=== PATIENT | female | born 1965 | race Caucasian/White ===

== ENCOUNTER 2016-07-04 00:39 | Inpatient (IN) | payer BC ==
--- NOTE | 2016-07-04 01:08 | DR.GENAD ---
HPI - PCP Primary Care Physician: ESPERANZA TAM - Complaint/Symptoms Chief Complaint:: UPPER ABD PAIN DENIES ANY NVD Self Treatment fo Chief Complaint: NONE - Nurses notes reviewed Nurses Notes Review: Yes - Source History Provided: Patient - Mode of Arrival Mode of Arrival: Wheelchair - Timing Onset of Chief Complaint: 07/04/16 Came on: Suddenly - Duration Duration: Constant How lon Duration: Hours - Location Location: epigastric - Severity Severity: Moderate - Modifying Factors Worsens:: nothing - Associated Signs and Symptoms Associated Signs and Symptoms: pain no N/V diarrhea PMH - PMH Past Medical History: Yes Past Medical History: Hypertension Past Medical History Comment: FM Past Surgical History: Yes Surgical History: Appendectomy, , Cholecystectomy - Family History History of Family Medical Conditions: Yes Family Medical History: Diabetes Mellitus Family Medical History Comment: FATHER - Social History Does patient currently use any type of tobacco product: No Have you used tobacco products in the last 12 months: No Type of Tobacco Use: None Does any household member use tobacco: No Alcohol Use: None Do you use any recreational Drugs:: No Lives With: Spouse Lives Where: Home - infectious screening In the last 2 months have you had wt loss of >10#?: NO Have you had fever, night sweats or hemotysis?: No Have you traveled outside the country in the last 6 months?: No Isolation: Standard ROS - Review of Systems Constitutional: No Symptoms Reported Eyes: No Symptoms Reported ENTM: Nose Congestion Respiratoy: Dry Cough Cardiovascular: No Symptoms Reported Gastrointestinal/Abdominal: Abdominal Pain Neurological: Anxiety Musculoskeletal: No Symptoms Reported Integumentary: No Symptoms Reported Hematologic/Lymphatic: No Symptoms Reported Endocrine: No Symptoms Reported Psychiatric: Depression PE - Vital Signs Vitals: Temperature 98.7 F Pulse Rate 77 Respiratory Rate 18 Blood Pressure [Right Arm] 135/73 Blood Pressure 147/79 O2 Sat by Pulse Oximetry 100 - General Limitations: No Limitations General Appearance: Alert - Head Head Exam: Normal Inspection - Eyes Eye exam: EOMI. negative: Scleral Icterus, Conjunctival Injection - ENT ENT Exam: Normal Exam, Normal Oropharynx External Ear Exam: Normal External Inspection Nose Exam: Normal Nose Exam Mouth Exam: Normal Inspection - Neck Neck Exam: Normal Inspection, Full ROM, Trachea Midline - Chest Chest Inspection: Normal Inspection - Respiratory Respiratory Exam: negative: Accessory Muscle Use, Respiratory Distress Respiratory Exam: Bilateral Clear to Auscultation - Abdominal Exam Abdominal Exam: Normal Inspection, Normal Bowel Sounds, Soft, Tenderness ( epigastric). negative: Distention, Guarding Abdominal Tenderness: Epigastrium - Extremities Extremities Exam: Normal Inspection, Full ROM - Neurologic Neurological Exam: Alert, Oriented X3, CN II-XII Intact - Psychiatric Psychiatric Exam: Anxious - Skin Skin Exam: Intact, Normal Color Course - Consultation Called: 02:10 Call Returned: 02:10 Consultation Comments: case discussed with Dr. Anguiano admit get CT abdo/pelvis ROR - Labs Reviewed Result Diagrams: 07/04/16 01:00 07/04/16 01:00 Laboratory: WBC 9.7 X10^3/uL (3.6-10.0) 07/04/16 01:00 RBC 4.83 X10^6/uL (3.5-5.4) 07/04/16 01:00 Hgb 14.2 g/dL (12.0-16.0) 07/04/16 01:00 Hct 43.0 % (36.0-47.0) 07/04/16 01:00 MCV 89.0 fL (80.0-100.0) 07/04/16 01:00 MCH 29.3 pg (27.0-34.0) 07/04/16 01:00 MCHC 33.0 g/dL (33.0-35.0) 07/04/16 01:00 RDW 14.0 % (11.6-16.5) 07/04/16 01:00 Plt Count 262 X10^3/uL (150.0-450.0) 07/04/16 01:00 MPV 10.1 fL (7.4-11.0) 07/04/16 01:00 Neut % 68.8 % (42.0-75.0) 07/04/16 01:00 Lymph % 19.2 % (21.0-51.0) L 07/04/16 01:00 [place] % 8.7 % (0.0-13.0) 07/04/16 01:00 Eos % 2.1 % (0.9-2.9) 07/04/16 01:00 Baso % 1.2 % (0.2-1.0) H 07/04/16 01:00 Neut # 6.7 x10^3/uL (2.2-4.8) H 07/04/16 01:00 Lymph # 1.9 X10^3/uL (1.3-2.9) 07/04/16 01:00 [place] # 0.8 x10^3/uL (0.3-0.8) 07/04/16 01:00 Eos # 0.2 x10^3/uL (0.0-0.2) 07/04/16 01:00 Baso # 0.1 X10^3/uL (0.0-0.1) 07/04/16 01:00 Absolute Nucleated RBC 0.1 /100WBC 07/04/16 01:00 Sodium 140 mmol/L (136-145) 07/04/16 01:00 Corrected Sodium TNP 07/04/16 01:00 Potassium 3.8 mmol/L (3.5-5.1) 07/04/16 01:00 Chloride 102 mmol/L (98-107) 07/04/16 01:00 Carbon Dioxide 27.9 mmol/L (21-32) 07/04/16 01:00 BUN 11 mg/dL (7-18) 07/04/16 01:00 Creatinine 0.86 mg/dL (0.55-1.02) 07/04/16 01:00 Est GFR (MDRD) Af Amer > 60 (>60) 07/04/16 01:00 Est GFR (MDRD) Non-Af > 60 (>60) 07/04/16 01:00 Glucose 104 mg/dL (65-99) H 07/04/16 01:00 Calcium 8.7 mg/dL (8.5-10.1) 07/04/16 01:00 Corrected Calcium TNP 07/04/16 01:00 Total Bilirubin 0.40 mg/dL (0.2-1.0) 07/04/16 01:00 AST 23 Units/L (15-37) 07/04/16 01:00 ALT 27 Units/L (12-78) 07/04/16 01:00 Alkaline Phosphatase 70 Units/L (46-116) 07/04/16 01:00 Total Protein 7.8 g/dL (6.4-8.2) 07/04/16 01:00 Albumin 3.8 g/dL (3.4-5.0) 07/04/16 01:00 Globulin 4.0 g/dL (2.5-4.5) 07/04/16 01:00 Albumin/Globulin Ratio 1.0 Ratio (1.1-2.1) L 07/04/16 01:00 Lipase 1188 Units/L (73-393) H 07/04/16 01:00 - XRAY XRAY Interpreted by: Radiologist XRAY Findings: AAS: no acute disease - Diagnosis Discharge Problem: Pancreatitis, acute Qualifiers: Pancreatitis type: unspecified pancreatitis type Acute pancreatitis complication: unspecified Qualified Code(s): K85.90 - Acute pancreatitis without necrosis or infection, unspecified - Discharge Plan Condition: Stable - Follow ups/Referrals Follow ups/Referrals: Cleve Ratliff [Primary Care Provider] - 3 days - Instructions
[2016-07-04] MEDS ORDERED: REGLAN INJ 10 MG VIAL IVP ONE (01:16)
[2016-07-04] MEDS ORDERED: PROTONIX INJ 40 MG VIAL IVP ONE (01:16)
[2016-07-04] MEDS ORDERED: LEVSIN/MAALOX/LIDOC VISC PO ONE (01:16)
[2016-07-04] MEDS ORDERED: LEVSIN/MAALOX/LIDOC VISC ONE (01:18)
[2016-07-04] MEDS ORDERED: REGLAN INJ 10 MG VIAL ONE (01:18)
[2016-07-04] MEDS ORDERED: PROTONIX INJ 40 MG VIAL ONE (01:19)
[2016-07-04 01:25] LABS: BASOPHILS # (AUTO) 0.1 X10^3/uL (0.0-0.1); BASOPHILS % (AUTO) 1.2 % (0.2-1.0); EOSINOPHILS # (AUTO) 0.2 x10^3/uL (0.0-0.2); EOSINOPHILS % (AUTO) 2.1 % (0.9-2.9); HEMOGLOBIN 14.2 g/dL (12.0-16.0); LYMPHOCYTES # (AUTO) 1.9 X10^3/uL (1.3-2.9); LYMPHOCYTES % (AUTO) 19.2 % (21.0-51.0); MEAN CORPUSCULAR HEMOGLOBIN 29.3 pg (27.0-34.0); MEAN PLATELET VOLUME 10.1 fL (7.4-11.0); MONOCYTES # (AUTO) 0.8 x10^3/uL (0.3-0.8); MONOCYTES % (AUTO) 8.7 % (0.0-13.0); NEUTROPHILS # (AUTO) 6.7 x10^3/uL (2.2-4.8); NEUTROPHILS % (AUTO) 68.8 % (42.0-75.0); PLATELET COUNT 262 X10^3/uL (150.0-450.0); RED BLOOD COUNT 4.83 X10^6/uL (3.5-5.4); WHITE BLOOD COUNT 9.7 X10^3/uL (3.6-10.0)
[2016-07-04 01:35] LABS: ALANINE AMINOTRANSFERASE 27 Units/L (12-78); ALBUMIN 3.8 g/dL (3.4-5.0); ALKALINE PHOSPHATASE 70 Units/L (46-116); ASPARTATE AMINO TRANSFERASE 23 Units/L (15-37); BLOOD UREA NITROGEN 11 mg/dL (7-18); CALCIUM 8.7 mg/dL (8.5-10.1); CARBON DIOXIDE 27.9 mmol/L (21-32); CHLORIDE 102 mmol/L (98-107); CREATININE 0.86 mg/dL (0.55-1.02); GLUCOSE 104 mg/dL (65-99); LIPASE 1188 Units/L (73-393); SODIUM 140 mmol/L (136-145); TOTAL PROTEIN 7.8 g/dL (6.4-8.2); eGFR BLACK RACES > 60 (>60); eGFR NON BLACK RACES > 60 (>60)
--- NOTE | 2016-07-04 02:00 | RAD ---
EXAM: Abdomen series and Chest x-ray INDICATION: Abdominal pain COMPARISION: No priors TECHNIQUE: Abdomen flat and upright, two views and PA view of the chest, single view FINDINGS: The lungs are clear. No pneumothorax or pleural effusion. The cardiac silhouette and mediastinum are normal. The bowel gas pattern is nonobstructed. No abnormal mass effect or calcification. The regio nal skeleton is intact. No free air is seen under the hemidiaphragms. IMPRESSION: Normal abdominal series and chest x-ray. Reported By:
[2016-07-04] MEDS ORDERED: DEMEROL INJ IVP PRN (02:15)
[2016-07-04 03:18] VITALS: BMI 29.9
[2016-07-04] MEDS: NS 1000 ML 1,000 ML IV SCH ×3 (04:28→19:55)
--- NOTE | 2016-07-04 07:14 | CT ---
HISTORY: Pancreatitis Study: CT abdomen pelvis with contrast Comparison: None Technique: Axial post-contrast images with coronal and sagittal reformats. Dose reduction procedures were used with MA/kv adjusted for body size. Findings: The lung bases are clear. The liver, spleen, adrenal glands, and pancreas are within normal limits. The patient is status post cholecystectomy. The kidneys are unobstructed and without stones or francia s. No ureteral calculi are identified. The appendix is surgically absent by history. There are no fi ndings suggestive of diverticulitis or colitis. No enlarged intraperitoneal or retroperitoneal lymph adenopathy is identified. Examination of the pelvis demonstrated no evidence for pelvic masses, pelv ic fluid, or pelvic lymphadenopathy. No bladder abnormality is identified. No significant skeletal a bnormality is identified. IMPRESSION: No significant abnormality identified Reported By:
[2016-07-04] MEDS ORDERED: PATIENT'S HOME MEDICATION RESPIRATORY (Losartan Potassium [Losartan Potassium] 25 MG) PO SCH (09:00)
[2016-07-04] MEDS: COZAAR PO SCH (09:17)
[2016-07-04] MEDS: HYDROCHLOROTHIAZIDE 25 MG TAB PO SCH (09:17)
[2016-07-04] MEDS: PROTONIX INJ 40 MG VIAL IVP SCH (09:17)
[2016-07-04 09:49] LABS: BILIRUBIN,URINE NEGATIVE (NEGATIVE); BLOOD/HEMOGLOBIN,URINE NEGATIVE (NEGATIVE); GLUCOSE, URINE NEGATIVE (NEGATIVE); KETONES,URINE NEGATIVE (NEGATIVE); LEUKOCYTE ESTERASE ,URINE NEGATIVE (NEGATIVE); NITRITES,URINE NEGATIVE (NEGATIVE); PROTEIN,URINE NEGATIVE (NEGATIVE); UROBILINOGEN,URINE NORMAL (NORMAL)
[2016-07-04 10:12] LABS: APPEARANCE,URINE CLEAR (CLEAR); COLOR,URINE YELLOW (YELLOW)
[2016-07-04 10:17] LABS: BACTERIA,URINE NEGATIVE /HPF (NEGATIVE); RBC,URINE NONE SEEN /HPF (NEGATIVE); SQUAMOUS EPITHELIAL CELL,UR RARE /HPF (NEGATIVE)
[2016-07-04] MEDS ORDERED: CYMBALTA PO SCH ×4 (11:00→21:00)
[2016-07-04] MEDS: NEURONTIN CAP 100 MG PO SCH ×2 (14:32→21:38)
[2016-07-04] MEDS ORDERED: ZANAFLEX PO SCH (21:00)
--- NOTE | 2016-07-04 22:33 | DR.H&P ---
H&P - History & Physical for Day of: H&P Date: 07/04/16 - Chief Complaint Chief Complaint: ABDOMINAL PAIN - Allergies Allergies/Adverse Reactions: Allergies Allergy/AdvReac Type Severity Reaction Status Date / Time No Known Drug Allergy Allergy Verified 01/24/12 21:47 - History of Present Illness History of Present Illness: THIS IS A 50 YEAR OLD FEMALE, WHO IS FOLLOWED BY RAFIA DE LEON IN [facility]. SHE PRESENTS TO THE EMERGENCY ROOM WITH COMPLAINTS OF UPPER ABDOMINAL PAIN. SHE REPORTS ABDOMINAL PAIN BEGAN SUDDENLY, APPROXIMATELY ONE HOUR PRIOR TO ARRIVAL. PATIENT DENIES N/V/D. ON AUSCULTATION, BOWEL SOUNDS NORMAL. UPON PALPATION, ABDOMEN IS SOFT WITH DIFFUSE TENDERNESS. PATIENT RATES ABDOMINAL PAIN A 10 ON A 1-TO-10 PAIN SCALE. SHE DENIES TRAUMA OR ALCOHOL USE. SHE IS STATUS POST CHOLECYSTECTOMY. PATIENT HAS RECENTLY HAD TREATMENT FOR INFLUENZA. PATIENT AFEBRILE. LABS AND CT OBTAINED. CBC WNL. CMP WNL EXCEPT: GLUCOSE 104, LIPASE 1188. URINALYSIS WNL. CT OF ABDOMEN/PELVIS REPORTS NO SIGNIFICANT ABNORMALITY. WE WILL ADMIT PATIENT AND TREAT HER FOR PANCREATITIS WITH IV FLUIDS. WE WILL START DEMEROL AND PROTONIX, CONTINUE TO MONITOR, AND FOLLOW UP IN AM WITH LABS. - Past Medical History Past Medical History: Depression, GERD, Hypertension Additional Medical History: Vision Deficit, Gall Bladder Disease, Urinary Tract Infections, Pancreatitis, Fibromyalgia, Back Pain - Past Surgical History Surgical History: Appendectomy, , Cholecystectomy, Hysterectomy - Family History Family Medical History: Diabetes Mellitus - Social History Does patient currently use any type of tobacco product: No Have you used tobacco products in the last 12 months: No Type of Tobacco Use: None Does any household member use tobacco: No Alcohol Use: None Drug Use: None - Medications Home Medications: Cefdinir 1 cap PO BID 07/04/16 [History Confirmed 07/04/16] Cholecalciferol [Vitamin D] 5,000 iu PO DAILY 07/04/16 [History Confirmed ] Cinnamon [Cinnamon Extract] 1,000 mg PO DAILY 07/04/16 [History Confirmed ] Duloxetine HCl [Duloxetine HCl] 1 cap PO DAILY 07/04/16 [History Confirmed 07/04] Duloxetine HCl [Duloxetine HCl] 1 cap PO DAILY 07/04/16 [History Confirmed 07/04] Gabapentin [Gabapentin] 1 cap PO TID 07/04/16 [History Confirmed 07/04/16] Glucosamine-Chondroitin [Glucosamine/Chondroitin T 750-600 mg] 1 tab PO DAILY [History Confirmed 07/04/16] Guaifenesin-Codeine [Cheratussin AC 100-10 mg/5Ml] 2 teaspoon PO Q4-6H PRN 07/04 [History Confirmed 07/04/16] Hydrochlorothiazide [Hydrochlorothiazide] 1 tab PO DAILY PRN 07/04/16 [History Confirmed 07/04/16] Hydroxychloroquine Sulfate [Hydroxychloroquine Sulfat] 1 tab PO BID 07/04/16 [ History Confirmed 07/04/16] Lisdexamfetamine Dimesylate [Vyvanse] 1 cap PO DAILY 07/04/16 [History Confirmed 07/04/16] Losartan Potassium 1 tab PO DAILY 07/04/16 [History Confirmed 07/04/16] Oseltamivir Phosphate [TAMIFLU 75 MG CAP (ADULT) *] 1 cap PO BID 07/04/16 [ History Confirmed 07/04/16] Pilocarpine HCl (Oral) [Pilocarpine Hydrochloride] 1 tab PO QID PRN 07/04/16 [ History Confirmed 07/04/16] Tizanidine HCl [Tizanidine HCl] 1 tab PO HS 07/04/16 [History Confirmed 07/04/16 ] - Review of Systems Constitutional: Weakness, Malaise Eyes: No Symptoms Reported. denies: Pain, Vision Change, Conjunctivae Inflammation, Eyelid Inflammation, Redness ENT: No Symptoms Reported. denies: Ear Pain, Ear Discharge, Nose Pain, Nose Discharge, Nose Congestion, Mouth Pain, Mouth Swelling, Throat Pain, Throat Swelling Respiratory: No Symptoms Reported. denies: Cough, Shortness of Breath, Hemoptysis, SOB with Excertion, Pleuritic Pain, Sputum, Wheezing Cardiovascular: No Symptoms Reported. denies: Chest Pain, Palpitations, Orthopnea, Paroxysmal Noc. Dyspnea, Edema, Light Headedness Gastrointestinal: Abdominal Pain. denies: Nausea, Vomiting, Diarrhea, Constipation, Melena Genitourinary: No Symptoms Reported. denies: Dysuria, Frequency, Incontinence, Hematuria Musculoskeletal: No Symptoms Reported. denies: Shoulder Pain, Arm Pain, Back Pain, Hand Pain, Leg Pain, Foot Pain Skin: Jaundice. denies: Lesions, Bruising, Ecchymosis Neurological: No Symptoms Reported. denies: Weakness, Numbness, Incoordination , Change in Speech - Physical Exam Vital Signs: Temperature 97.9 F Pulse Rate [Left Brachial] 68 Respiratory Rate 20 Blood Pressure [Left Arm] 106/63 O2 Sat by Pulse Oximetry 99 Oriented: Normal, Time, Person, Place Eyes: Normal. negative: Blurred Vision, Discharge, Pain, Redness, Photophobia Ear: Normal. negative: Swelling, Ecchymosis, Hemotypanum, Abrasion, Laceration Nose: Normal. negative: Injected, Discharge, Blood Throat: Normal. negative: Tonsillar Hypertrophy, Red Respiratory: Clear Throughout Cardiovascular: Normal. negative: Murmur, Edema : Normal. negative: Dysuria, Hematuria, Frequency, Discharge Auscultation: Bowel Sounds: Normal. negative: Bruit Palpation: Normal. negative: Spleen Enlarged, Liver Enlarged, Mass Pulsatile Tenderness: Diffuse, Severe. negative: Rebound, Guarding, Rigidity Skin: Normal Musculoskeletal: Normal Psychiatric: Normal Mood Description: Calm, Appropriate Affect: Normal Speech Pattern: Clear, Appropriate - Assessment/Plan (1) Pancreatitis, acute Qualifiers: Pancreatitis type: unspecified pancreatitis type Acute pancreatitis complication: unspecified Qualified Code(s): K85.90 - Acute pancreatitis without necrosis or infection, unspecified Status: Acute Plan: ADMIT PATIENT, START IV FLUIDS, MONITOR AMYLASE AND LIPASE, DEMEROL NEEDED, LABS IN AM. (2) Depression Qualifiers: Depression Type: major depressive disorder Major depression recurrence: recurrent Active/Remission status: currently active Major depression episode severity: moderate Psychotic features: P Trimester: T Qualified Code(s): F33.1 - Major depressive disorder, recurrent, moderate Status: Chronic (3) GERD (gastroesophageal reflux disease) Qualifiers: Esophagitis presence: esophagitis presence not specified Qualified Code(s) : K21.9 - Gastro-esophageal reflux disease without esophagitis Status: Chronic (4) HTN (hypertension) Qualifiers: Hypertension type: essential hypertension Qualified Code(s): I10 - Essential (primary) hypertension Status: Chronic
[2016-07-05] MEDS: NS 1000 ML 1,000 ML IV SCH (03:27)
[2016-07-05] MEDS: NEURONTIN CAP 100 MG PO SCH (05:15)
[2016-07-05 06:23] LABS: ALANINE AMINOTRANSFERASE 33 Units/L (12-78); ALBUMIN 2.9 g/dL (3.4-5.0); ALKALINE PHOSPHATASE 57 Units/L (46-116); AMYLASE 65 Units/L (25-115); ASPARTATE AMINO TRANSFERASE 19 Units/L (15-37); BLOOD UREA NITROGEN 6 mg/dL (7-18); CHLORIDE 108 mmol/L (98-107); CHOL/HDL RATIO 3.3 (0.0-5.0); CHOLESTEROL 149 mg/dL (0-200); COR CA(FOR HYPOALB) 8.9 mg/dL (8.5-10.1); GLUCOSE 87 mg/dL (65-99); HDL CHOLESTEROL 45 mg/dL (40-60); LIPASE 176 Units/L (73-393); SODIUM 143 mmol/L (136-145); TOTAL PROTEIN 6.1 g/dL (6.4-8.2); TRIGLYCERIDES 67 mg/dL (0-150); eGFR BLACK RACES > 60 (>60); eGFR NON BLACK RACES > 60 (>60)
[2016-07-05 06:31] LABS: BASOPHILS # (AUTO) 0.1 X10^3/uL (0.0-0.1); EOSINOPHILS # (AUTO) 0.2 x10^3/uL (0.0-0.2); EOSINOPHILS % (AUTO) 3.2 % (0.9-2.9); HEMATOCRIT 36.1 % (36.0-47.0); HEMOGLOBIN 11.7 g/dL (12.0-16.0); LYMPHOCYTES # (AUTO) 2.1 X10^3/uL (1.3-2.9); LYMPHOCYTES % (AUTO) 32.2 % (21.0-51.0); MEAN CORPUSCULAR HEMOGLOBIN 29.3 pg (27.0-34.0); MEAN CORPUSCULAR HGB CONC 32.5 g/dL (33.0-35.0); MEAN CORPUSCULAR VOLUME 90.1 fL (80.0-100.0); MEAN PLATELET VOLUME 10.4 fL (7.4-11.0); MONOCYTES # (AUTO) 0.6 x10^3/uL (0.3-0.8); MONOCYTES % (AUTO) 8.6 % (0.0-13.0); NEUTROPHILS # (AUTO) 3.6 x10^3/uL (2.2-4.8); PLATELET COUNT 221 X10^3/uL (150.0-450.0); RED BLOOD COUNT 4.01 X10^6/uL (3.5-5.4); WHITE BLOOD COUNT 6.5 X10^3/uL (3.6-10.0)
[2016-07-05] MEDS: COZAAR PO SCH (08:42)
[2016-07-05] MEDS: HYDROCHLOROTHIAZIDE 25 MG TAB PO SCH (08:42)
[2016-07-05] MEDS: PROTONIX INJ 40 MG VIAL IVP SCH (08:42)
[2016-07-05 09:47] VITALS: BP 104/66
== END 2016-07-05 10:30 | disposition home or self-care (01) | DRG 439 ==
LOC: ER 00:39 → MED/SURG 02:17
PROVIDERS: ADMIT Internal Medicine; ATTEND Internal Medicine
DX: K85.90 Acute pancreatitis without necrosis or infection, unspecified (principal); R10.84 Generalized abdominal pain; K21.9 Gastro-esophageal reflux disease without esophagitis; I10 Essential (primary) hypertension; F33.1 Major depressive disorder, recurrent, moderate; R74.8 Abnormal levels of other serum enzymes
CPT/HCPCS: 36415; 74022; 74177; 80053; 80061; 81001; 82150; 83690; 85025; 96365; 96374; 96375; 99284; A4222; C9113; J2175; J2765

== ENCOUNTER 2018-10-04 21:10 | Inpatient (IN) ==
[2018-10-04 21:58] LABS: BASOPHILS % (AUTO) 0.4 % (0.2-1.0); EOSINOPHILS # (AUTO) 0.3 x10^3/uL (0.0-0.2); EOSINOPHILS % (AUTO) 1.9 % (0.9-2.9); HEMATOCRIT 40.4 % (36.0-47.0); HEMOGLOBIN 13.8 g/dL (12.0-16.0); LYMPHOCYTES # (AUTO) 1.2 X10^3/uL (1.3-2.9); LYMPHOCYTES % (AUTO) 8.9 % (21.0-51.0); MEAN CORPUSCULAR HGB CONC 34.3 g/dL (33.0-35.0); MEAN CORPUSCULAR VOLUME 87.7 fL (80.0-100.0); MEAN PLATELET VOLUME 9.3 fL (7.4-11.0); MONOCYTES # (AUTO) 0.8 x10^3/uL (0.3-0.8); MONOCYTES % (AUTO) 5.8 % (0.0-13.0); NEUTROPHILS # (AUTO) 11.6 x10^3/uL (2.2-4.8); PLATELET COUNT 212 X10^3/uL (150.0-450.0); RED BLOOD COUNT 4.61 X10^6/uL (3.5-5.4); RED CELL DISTRIBUTION WIDTH 13.8 % (11.6-16.5); WHITE BLOOD COUNT 13.9 X10^3/uL (3.6-10.0)
[2018-10-04 22:15] LABS: BLOOD UREA NITROGEN 10 mg/dL (7-18); CALCIUM 10.1 mg/dL (8.5-10.1); CARBON DIOXIDE 32.1 mmol/L (21-32); CHLORIDE 97 mmol/L (98-107); COR NA(FOR HYPERGLY) 136 mmol/L (136-145); SODIUM 136 mmol/L (136-145); TROPONIN I 0.29 ng/mL (0-1.5); eGFR NON BLACK RACES 55 (>60)
--- NOTE | 2018-10-04 22:18 | DR.SOBA ---
HPI Time Seen Time Seen by Provider: 10/04/18 22:17 Primary Care Physician Primary Care Physician: ESPERANZA HPI Comment HPI Comment: PATIENT IS 52YR OLD WHITE FEMALE WHO STARTED HAVING HEADACHE, EAR PAIN,NECK PAIN AND LOWER BACK PAIN. SHE WAS ON A TRIP AND CONTINUE TO FEEL BAD. CHEST PAIN, SUB STRENAL PRESSURE STARTED TODAY THAT IS GETTING WORSE. NO FEVER OR CONGESTION. HISTORY FIBROMYALGIA. RECENTLY CHANGE HER MEDICATION. Complaints Chief Complaint Doctors Comments: CHEST PAIN. Chief Complaint:: PT STATES" IT STARTED ABOUT 4 DAYS AGO WHEN I WENT ON A TRIP. I HAD A REALLY BAD HEADACHE AND MY EARS STARTED HURTING AND MY NECK HURTS IT GOES ACROSS MY BACK. I FELT SOB STARTING YESTERDAY IT WAS WORSE AFTER I GOT OFF THE PLANE CHEST STARTED HURTING I FEEL LIKE I HAVE A BRICK ON MY CHEST" Reviewed Nurses Notes Reviewed: Yes Source History Provided: Patient and Family Member Mode of Arrival Mode of Arrival: Ambulatory Timing Onset of Chief Complaint: 10/01/18 Duration Duration: Days Context Onset:: With Light Exertion PE Risk Factors:: None History of:: None Currently on:: Neither Prehospital Care:: None Modifying Factors Worsens:: Exertion Improves:: Rest Associated Signs and Symptoms Associated Signs and Symptoms: Chest Pain PMH PMH Past Medical History: Yes Past Medical History: Depression, GERD and Hypertension Past Medical History Comment: FIBROMYALGIA Past Surgical History: Yes Surgical History: Appendectomy, , Cholecystectomy and Hysterectomy Family History History of Family Medical Conditions: Yes Family Medical History: Diabetes Mellitus and Hypertension Social History Does patient currently use any type of tobacco product: No Have you used tobacco products in the last 12 months: No Does any household member use tobacco: No Alcohol Use: None Do you use any recreational Drugs:: No Lives With: Family Lives Where: Home infectious screening In the last 2 months have you had wt loss of >10#?: NO Have you had fever, night sweats or hemotysis?: No Have you traveled outside the country in the last 6 months?: No Isolation: Standard ROS Review of Systems Constitutional: See HPI, Malaise, Weakness and Fatigue; negative Fever Eyes: See HPI and Photophobia; negative Eye Pain, Blurred Vision and Discharge ENTM: See HPI and Ear Pain; negative Nose Discharge, Nose Congestion and Throat Pain Respiratoy: See HPI, Moist Cough and Short of Breath; negative Wheezing Cardiovascular: See HPI and Chest Pain; negative Edema and Palpitations Gastrointestinal/Abdominal: See HPI and Nausea; negative Abdominal Pain, Constipation, Diarrhea and Vomiting Genitourinary: No Symptoms Reported and See HPI; negative Dysuria, Frequency and Hematuria Neurological: See HPI, Headache and Weakness; negative Dizziness Musculoskeletal: See HPI, Back Pain and Muscle Pain Integumentary: See HPI and Dryness; negative Change in Color, Bruises and Juandice Hematologic/Lymphatic: See HPI, Easy Bruising and Swollen Glands; negative Lymphadenopathy Endocrine: See HPI and Unexplained Weight Gain; negative Flushing Psychiatric: No Symptoms Reported and See HPI All Other Systems: Reviewed and Negative PE Vital Signs Vitals: Temperature 98.2 F Pulse Rate [Left Brachial] 86 Pulse Rate 72 Respiratory Rate 20 Blood Pressure [Left Arm] 98/62 Blood Pressure [Right Arm] 135/73 Blood Pressure 103/60 O2 Sat by Pulse Oximetry 97 General Limitations: No Limitations General Appearance: Alert and In No Apparent Distress Head Head Exam: Normal Inspection, Atraumatic and Normocephalic Eyes Eye exam: Normal Appearance, PERRL and EOMI; negative Scleral Icterus and Conjunctival Injection ENT ENT Exam: Normal Exam and Normal Oropharynx; negative Normal External Ear Exam and TM's Normal Bilaterally Neck Neck Exam: Normal Inspection, Trachea Midline and Lymphadenopathy; negative Tenderness Chest Chest Inspection: Symmetric Chest Wall Rise; negative Tenderness Respiratory Respiratory Exam: Normal Lung Sounds Bilat; negative Accessory Muscle Use, Chest Wall Tenderness and Respiratory Distress Respiratory Exam: Bilateral: Rhonchi and Lower: Rhonchi Cardiovascular Cardiovascular Exam: Regular Rate, Normal Rhythm and Normal Heart Sounds; negative Systolic Murmur and Diastolic Murmur Abdominal Exam Abdominal Exam: Normal Bowel Sounds and Soft; negative Tenderness, Organomegaly and Mass Extremities Extremities Exam: Normal Inspection and Normal Capillary Refill; negative Tenderness, Edema and Calf Tenderness Back Back Exam: Normal Inspection and Full ROM Neurologic Neurological Exam: Alert, Oriented X3 and CN II-XII Intact; negative Motor Sensory Deficit Psychiatric Psychiatric Exam: Normal Affect and Anxious Skin Skin Exam: Dry MDM Additional Information Obtained Additional Information Obtained From: Family Differential Diagnosis Differential Diagnosis: Bronchitis, CHF, Dysrhythmia, Hyponatremia, Mycardial Infarction, Pneumonia, Pneumothorax, Pulmonary embolism, Respiratory Insufficiency, Sinusitis and URI COURSE Treatment Treatment: SEE ORDERS. 01:18 : MORPHIN 4MG IV AND ZOFRAN 4MG IV. 01:20 : POTASSIUM 50MEQ EFFERVESCENT PO. ROR Labs Reviewed Laboratory Results Reviewed?: Yes Result Diagrams: 10/06/18 05:08 10/06/18 05:08 Laboratory: 10/04/18 21:45 Blood Blood Culture - Preliminary 10/04/18 22:34 Blood Blood Culture - Preliminary 10/05/18 05:02 Sputum - Expectorated Sputum Sputum Culture - Preliminary 10/05/18 05:02 Sputum - Expectorated Sputum - Final WBC 10.8 X10^3/uL (3.6-10.0) H 10/06/18 05:08 RBC 4.08 X10^6/uL (3.5-5.4) 10/06/18 05:08 Hgb 12.5 g/dL (12.0-16.0) 10/06/18 05:08 Hct 36.8 % (36.0-47.0) 10/06/18 05:08 MCV 90.4 fL (80.0-100.0) 10/06/18 05:08 MCH 30.6 pg (27.0-34.0) 10/06/18 05:08 MCHC 33.9 g/dL (33.0-35.0) 10/06/18 05:08 RDW 14.0 % (11.6-16.5) 10/06/18 05:08 Plt Count 186 X10^3/uL (150.0-450.0) 10/06/18 05:08 MPV 10.3 fL (7.4-11.0) 10/06/18 05:08 Neut % (Auto) 89.5 % (42.0-75.0) H 10/06/18 05:08 Lymph % (Auto) 7.5 % (21.0-51.0) L 10/06/18 05:08 [place] % (Auto) 2.7 % (0.0-13.0) 10/06/18 05:08 Eos % (Auto) 0.0 % (0.9-2.9) L 10/06/18 05:08 Baso % (Auto) 0.3 % (0.2-1.0) 10/06/18 05:08 Neut # (Auto) 9.7 x10^3/uL (2.2-4.8) H 10/06/18 05:08 Lymph # (Auto) 0.8 X10^3/uL (1.3-2.9) L 10/06/18 05:08 [place] # (Auto) 0.3 x10^3/uL (0.3-0.8) 10/06/18 05:08 Eos # (Auto) 0.0 x10^3/uL (0.0-0.2) 10/06/18 05:08 Baso # (Auto) 0.0 X10^3/uL (0.0-0.1) 10/06/18 05:08 Absolute Nucleated RBC 0.0 /100WBC 10/06/18 05:08 INR Target Range - 10/04/18 21:45 INR 1.07 (0.8-1.3) 10/04/18 21:45 APTT 29.5 SECONDS (22.9-36.5) 10/04/18 21:45 PTT Comment - 10/04/18 21:45 D-Dimer 498 ng/mL (0-400) H* 10/04/18 21:45 Sodium 139 mmol/L (136-145) 10/06/18 05:08 Corrected Sodium 140 mmol/L (136-145) 10/06/18 05:08 Potassium 3.7 mmol/L (3.5-5.1) 10/06/18 05:08 Chloride 104 mmol/L (98-107) 10/06/18 05:08 Carbon Dioxide 26.2 mmol/L (21-32) 10/06/18 05:08 BUN 11 mg/dL (7-18) 10/06/18 05:08 Creatinine 0.94 mg/dL (0.55-1.02) 10/06/18 05:08 Est GFR (MDRD) Af Amer > 60 (>60) 10/06/18 05:08 Est GFR (MDRD) Non-Af > 60 (>60) 10/06/18 05:08 Glucose 147 mg/dL (65-99) H 10/06/18 05:08 Calcium 9.1 mg/dL (8.5-10.1) 10/06/18 05:08 Corrected Calcium 9.9 mg/dL (8.5-10.1) 10/06/18 05:08 Magnesium 2.5 mg/dL (1.7-2.9) 10/06/18 05:08 Total Bilirubin 0.20 mg/dL (0.2-1.0) 10/06/18 05:08 AST 96 Units/L (15-37) H 10/06/18 05:08 ALT 154 Units/L (12-78) H 10/06/18 05:08 Alkaline Phosphatase 106 Units/L (46-116) 10/06/18 05:08 Creatine Kinase 110 Units/L (26-192) 10/06/18 05:08 CK-MB (CK-2) 2.7 ng/mL (0-4.0) 10/06/18 05:08 CK/CKMB % Calc 2.5 % (<4) 10/06/18 05:08 Troponin I 0.02 ng/mL (0-1.5) 10/06/18 05:08 B-Natriuretic Peptide 451 pg/mL (0-79) H 10/04/18 21:45 Total Protein 7.2 g/dL (6.4-8.2) 10/06/18 05:08 Albumin 3.0 g/dL (3.4-5.0) L 10/06/18 05:08 Globulin 4.2 g/dL (2.5-4.5) 10/06/18 05:08 Albumin/Globulin Ratio 0.7 Ratio (1.1-2.1) L 10/06/18 05:08 Influenza Type A (PCR) Negative (NEGATIVE) 10/05/18 09:37 Influenza Type B (PCR) Negative (NEGATIVE) 10/05/18 09:37 XRAY XRAY Interpreted by: Radiologist XRAY Findings: REPORT NOTED AND DISCUSS WITH PATIENT. Opioid Opioid Risk Tool Age ([place] box if 16-45): No Total: 0 Total Score Risk Category: Low Risk Copyright: [facility] predicting aberrant behaviors Instructions Instructions: How to Use a Nebulizer, Adult Upper Respiratory Infection, Adult, [id number] Hypertension, [id number] Community-Acquired Pneumonia, Adult Forms: Excuse From Work or School Patient Portal
[2018-10-04 22:19] LABS: ALANINE AMINOTRANSFERASE 37 Units/L (12-78); ALBUMIN 3.8 g/dL (3.4-5.0); ALKALINE PHOSPHATASE 93 Units/L (46-116); ASPARTATE AMINO TRANSFERASE 24 Units/L (15-37); CKMB % 1.4 % (<4); CREATINE KINASE 281 Units/L (26-192); CREATINE KINASE MB 3.9 ng/mL (0-4.0); MAGNESIUM 2.4 mg/dL (1.7-2.9); TOTAL PROTEIN 7.9 g/dL (6.4-8.2)
[2018-10-04] MEDS ORDERED: ZOFRAN INJ 4 MG VIAL ONE (23:10)
[2018-10-04] MEDS ORDERED: MORPHINE SULFATE INJ 4 MG ONE (23:11)
[2018-10-04] MEDS ORDERED: MORPHINE SULFATE INJ 4 MG IVP ONE (23:12)
[2018-10-04] MEDS ORDERED: ZOFRAN INJ 4 MG VIAL IVP ONE (23:12)
--- NOTE | 2018-10-04 23:39 | RAD ---
CHEST RADIOGRAPHS PA AND LATERAL VIEWS CLINICAL HISTORY: 52-year-old female with shortness of breath. COMPARISON: Chest radiographs 07/19/2013. FINDINGS: The cardiopericardial silhouette is stable with chronic prominence interstitium and perihilar lung markings. There is no focal consolidation, pleural effusion or pneumothorax. The lungs are well inflated. Pulmonary vascularity is normal. Imaged osseous structures are intact. Soft tissues are unremarkable. IMPRESSION: No acute cardiopulmonary process with findings suggesting COPD. Reported By:
[2018-10-05] MEDS ORDERED: NS 100 ML IV 100 ML ONE (01:17)
[2018-10-05] MEDS ORDERED: K-LYTE EFFERVESCENT PO ONE (01:20)
[2018-10-05 01:48] LABS: CKMB % 1.2 % (<4); CREATINE KINASE MB 2.5 ng/mL (0-4.0); TROPONIN I 0.26 ng/mL (0-1.5)
--- NOTE | 2018-10-05 02:08 | CT ---
CTA chest with contrast per pulmonary embolism protocol Indication: Chest pain Comparison: None available Technique: Multiple axial images of the chest were obtained from the thoracic inlet to the upper abdomen after the administration of IV contrast.Coronal and Sagittal MIP images were also provided. Dose reduction techniques including automated exposure control (AEC) and adjustment of mA and kV were utilized. Findings: No central or segmental pulmonary arterial filling defect is identified. There is normal caliber of the pulmonary artery without CT evidence or right heart strain. The heart size is within normal limits without pericardial effusion. No mediastinal, hilar or axillary adenopathy. Moderate peribronchial consolidation noted within the left and right lower lobes. Small nodular opacity within the subpleural right lower lobe measures approximately 6 mm on axial image 56. Mild diffuse peribronchial thickening is noted bilaterally. No pleural effusion or pneumothorax. Central airways are clear per Visualized upper abdomen and osseous structures are without acute abnormality. IMPRESSION: 1. No PTE identified. 2. Bilateral lower lobe peribronchial consolidation consistent acute bronchitis/bronchopneumonia. 3. Approximate 6 mm subpleural right lower lobe pulmonary nodule potentially is post infectious/inflammatory; however follow-up chest CT in 6 months is recommended to ensure resolution/stability. Reported By:
[2018-10-05] MEDS ORDERED: NS 1/2 1000 ML IV 1,000 ML ONE ×2 (03:29→17:16)
[2018-10-05] MEDS ORDERED: ZOFRAN INJ 4 MG VIAL IVP PRN (03:29)
[2018-10-05] MEDS ORDERED: MORPHINE SULFATE INJ 4 MG IVP PRN (03:29)
[2018-10-05] MEDS ORDERED: NS 100 ML IV + SPIKE MINIBAG* 100 ML ONE (03:30)
[2018-10-05] MEDS: NS 1/2 1000 ML IV 1,000 ML IV SCH ×2 (03:41→17:20)
[2018-10-05] MEDS ORDERED: NS 1/2 1000 ML IV 1,000 ML IV SCH (04:00)
[2018-10-05] MEDS ORDERED: FORTAZ or TAZICEF VIAL INJ IVP SCH (04:00)
[2018-10-05] MEDS ORDERED: SALINE 3% 15 ML NEB TX NEB ONE (04:04)
[2018-10-05] MEDS ORDERED: SALINE 3% 15 ML NEB TX ONE (04:11)
[2018-10-05] MEDS ORDERED: TYLENOL 325 MG TAB PO PRN (04:37)
[2018-10-05] MEDS ORDERED: TYLENOL 325 MG TAB PO ONE (04:46)
[2018-10-05 05:23] VITALS: BMI 29.3
[2018-10-05] MEDS ORDERED: DUONEB 0.5 MG/3 MG NEB SCH (06:00)
--- NOTE | 2018-10-05 06:23 | RAD ---
HISTORY: Pneumonia Study: Chest PA and lateral Comparison: CT chest same date, chest x-ray 10/04/2018 Findings: The heart is mildly enlarged. No congestive heart failure is noted. No definite acute alveolar infiltrates are identified. No definite pleural effusions are identified. The peribronchial infiltrates visualized on the recent chest CT are not well demonstrated on plain film. The bony thorax is unremarkable. IMPRESSION: Lungs free of acute alveolar infiltrates Reported By:
[2018-10-05 06:27] LABS: BASOPHILS # (AUTO) 0.1 X10^3/uL (0.0-0.1); BASOPHILS % (AUTO) 0.6 % (0.2-1.0); EOSINOPHILS # (AUTO) 0.5 x10^3/uL (0.0-0.2); EOSINOPHILS % (AUTO) 5.4 % (0.9-2.9); HEMATOCRIT 36.2 % (36.0-47.0); HEMOGLOBIN 12.5 g/dL (12.0-16.0); LYMPHOCYTES # (AUTO) 1.3 X10^3/uL (1.3-2.9); LYMPHOCYTES % (AUTO) 13.8 % (21.0-51.0); MEAN CORPUSCULAR HEMOGLOBIN 30.3 pg (27.0-34.0); MEAN CORPUSCULAR HGB CONC 34.6 g/dL (33.0-35.0); MEAN CORPUSCULAR VOLUME 87.5 fL (80.0-100.0); MEAN PLATELET VOLUME 9.6 fL (7.4-11.0); MONOCYTES # (AUTO) 0.6 x10^3/uL (0.3-0.8); MONOCYTES % (AUTO) 6.8 % (0.0-13.0); NEUTROPHILS # (AUTO) 6.7 x10^3/uL (2.2-4.8); NEUTROPHILS % (AUTO) 73.4 % (42.0-75.0); PLATELET COUNT 199 X10^3/uL (150.0-450.0); RED BLOOD COUNT 4.13 X10^6/uL (3.5-5.4); RED CELL DISTRIBUTION WIDTH 13.9 % (11.6-16.5); WHITE BLOOD COUNT 9.1 X10^3/uL (3.6-10.0)
[2018-10-05 06:34] LABS: ALANINE AMINOTRANSFERASE 82 Units/L (12-78); ALKALINE PHOSPHATASE 85 Units/L (46-116); ASPARTATE AMINO TRANSFERASE 92 Units/L (15-37); BLOOD UREA NITROGEN 7 mg/dL (7-18); CALCIUM 8.9 mg/dL (8.5-10.1); CARBON DIOXIDE 25.4 mmol/L (21-32); CHLORIDE 100 mmol/L (98-107); COR CA(FOR HYPOALB) 9.7 mg/dL (8.5-10.1); COR NA(FOR HYPERGLY) 135 mmol/L (136-145); SODIUM 135 mmol/L (136-145); TOTAL PROTEIN 6.6 g/dL (6.4-8.2); eGFR NON BLACK RACES > 60 (>60)
[2018-10-05] MEDS: DUONEB 0.5 MG/3 MG NEB SCH ×4 (08:56→20:24)
[2018-10-05] MEDS ORDERED: CYMBALTA PO SCH ×4 (09:00→21:00)
[2018-10-05] MEDS ORDERED: MINOCYCLINE 100 MG PO SCH (09:00)
[2018-10-05] MEDS: ROBITUSSIN DM PO SCH ×4 (09:56→20:59)
[2018-10-05] MEDS: ZANAFLEX PO SCH ×3 (09:57→20:58)
[2018-10-05] MEDS: NEURONTIN CAP 100 MG PO SCH (09:57)
[2018-10-05] MEDS: HYDROCHLOROTHIAZIDE 25 MG TAB PO SCH (09:59)
[2018-10-05] MEDS: COZAAR PO SCH (10:00)
[2018-10-05] MEDS: LEVAQUIN TAB 750 MG PO SCH (10:00)
[2018-10-05] MEDS: LISDEXAMFETAMINE 70 MG PO SCH (10:06)
[2018-10-05] MEDS: PILOCARPINE HCL 5 MG PO SCH ×4 (10:07→21:00)
[2018-10-05] MEDS: MINOCIN PO SCH ×2 (10:07→21:00)
[2018-10-05] MEDS: SOLU-Medrol 40 MG VIAL IVP SCH ×3 (12:36→22:00)
[2018-10-05] MEDS: FORTAZ or TAZICEF VIAL INJ IVP SCH ×2 (12:36→23:00)
[2018-10-05] MEDS ORDERED: FIORICET TAB PO PRN (12:39)
[2018-10-05] MEDS ORDERED: NEURONTIN CAP 100 MG PO SCH ×2 (17:00→21:00)
--- NOTE | 2018-10-05 20:57 | DR.H&P ---
H&P - History & Physical for Day of: H&P Date: 10/05/18 - Chief Complaint Chief Complaint: SOB, CHEST PRESSURE, NECK PAIN, DIZZINESS, HEADACHE - History of Present Illness History of Present Illness: IS A 52 YEAR OLD PATIENT OF OURS WHO PRESENTED TO THE ER WITH COMPLAINTS OF SHORTNESS OF BREATH, CHEST PRESSURE, NECK PAIN, DIZZINESS, AND HEADACHE. SHE REPORTS THAT SYMPTOMS STARTED FOUR DAYS AGO AND HAS BEEN PERSISTENT. HER MEDICAL HISTORY INCLUDES: DEPRESSION, GERD, HTN, FIBROMYALGIA. ON ARRIVAL, HER VITALS WERE: 98.4-90-20-99%-103/60. LABS WERE OBTAINED. ABNORMAL LAB VALUES INCLUDE THE FOLLOWING: WBC 13.9, D-DIMER 498, POT ASSIUM 3.1, CHLORIDE 97, CARBON DIOXIDE 32.1, CREATININE 1.10, GLUCOSE 120, CREATININE KINASE 281, BNP 451, INFLUENZA NEGATIVE. SPUTUM AND BLOOD CULTURES NEGATIVE. AN EKG WAS OBTAINED AND REVEALED: SINUS RHYTHM WITH HR 88. A CHEST XRAY WAS OBTAINED AND REVEALED: No acute cardiopulmonary process with findings suggesting COPD. A CHEST CTA WAS OBTAINED AND REVEALED: No PTE identified. Bilateral lower lobe peribronchial consolidation consistent acute bronchitis/bronchopneumonia. Approximate 6 mm subpleural right lower lobe pulmonary nodule potentially is post infectious/inflammatory; however follow-up chest CT in 6 months is recommended to ensure resolution/stability. SHE WAS GIVEN MORPHINE 4MG IV X 1 FOR HEADACHE. SHE WAS ALSO GIVEN A DUONEB AND STARTED ON FORTAZ 1G IV AND LEVAQUIN 750MG PO DAILY FOR TREATMENT OF BRONCHOPNEUMONIA. WE ADMITTED PATIENT FOR FURTHER EVALUATION AND TREATMENT. WE PLAN TO FOLLOW UP WITH AM LABS AND CHEST XRAY AND CONTINUE TO MONITOR. - Past Medical History Past Medical History: Hypertension, Depression, GERD Additional Medical History: Vision Deficit, Gall Bladder Disease, Urinary Tract Infections, Pancreatitis, Fibromyalgia, Back Pain - Past Surgical History Surgical History: Appendectomy, Cholecystectomy, , Hysterectomy - Family History Family Medical History: Diabetes Mellitus, Hypertension - Social History Does patient currently use any type of tobacco product: No Have you used tobacco products in the last 12 months: No Does any household member use tobacco: No Alcohol Use: None Drug Use: None Prescription drug monitoring program results: PDMP reviewed and no concerns identified - Medications Home Medications: No Known Drug Allergies Allergy (Verified 10/04/18 21:23) CONTINUE taking the following medications duloxetine 30 mg PO HS 06/24/19 [History] duloxetine 60 mg PO HS 10/04/18 [History] gabapentin 100 mg PO DAILY 10/04/18 [History] gabapentin 100 mg PO QAM 10/04/18 [History] gabapentin 300 mg PO HS 10/04/18 [History] hydrochlorothiazide 25 mg PO DAILY 10/04/18 [History] lisdexamfetamine [Vyvanse] 70 mg PO DAILY 10/04/18 [History] losartan 25 mg PO DAILY 10/04/18 [History] minocycline 100 mg PO BID 10/04/18 [History] pilocarpine HCl 5 mg PO QID 10/04/18 [History] tizanidine 2 mg PO BID 10/04/18 [History] - Review of Systems Constitutional: Weakness Eyes: No Symptoms Reported ENT: No Symptoms Reported Respiratory: Shortness of Breath Cardiovascular: Chest Pain, Light Headedness Gastrointestinal: No Symptoms Reported Genitourinary: No Symptoms Reported Musculoskeletal: See HPI, Neck Pain Skin: No Symptoms Reported Neurological: Weakness - Physical Exam Vital Signs: Temperature 98.8 F Pulse Rate [Left Brachial] 83 Pulse Rate 76 Respiratory Rate 18 Blood Pressure [Left Arm] 96/54 Blood Pressure [Right Arm] 135/73 Blood Pressure 103/60 O2 Sat by Pulse Oximetry 96 Oriented: Normal Eyes: Normal Ear: Normal Nose: Normal Throat: Normal Respiratory: Diminished Throughout Cardiovascular: Normal. negative: S3, S4, Murmur, Edema : Normal Auscultation: Bowel Sounds: Normal Palpation: Normal Tenderness: Normal Skin: Normal Musculoskeletal: Normal Psychiatric: Normal Mood Description: Calm Affect: Normal Speech Pattern: Clear - Assessment/Plan (1) Bronchopneumonia Status: Acute Plan: IV FORTAZ, LEVAQUIN, RESPIRATORY TREATMENTS, SUPPLEMENTAL OXYGEN, CONTINUE TO MONITOR (2) Headache Qualifiers: Headache type: unspecified Headache chronicity pattern: acute headache Status: Acute Plan: FIORCET, CONTINUE TO MONITOR - Allergies Allergies/Adverse Reactions: Allergies Allergy/AdvReac Type Severity Reaction Status Date / Time No Known Drug Allergies Allergy Verified 10/04/18 21:23
[2018-10-05] MEDS ORDERED: K-RIDER 10 MEQ/NS 100 ML 10 MEQ/100 ML BAG IV PRN (23:48)
[2018-10-05] MEDS ORDERED: POTASSIUM CHLORIDE LIQ 20 MEQ UDC PO PRN (23:48)
[2018-10-05] MEDS ORDERED: K-DUR TAB 20 MEQ PO PRN (23:48)
[2018-10-05] MEDS ORDERED: MICRO K EXTEN CAP 10 MEQ PO PRN (23:48)
[2018-10-05] MEDS ORDERED: POTASSIUM CHL 60 MEQ/NS 0.45% 500 ML IV PRN (23:48)
[2018-10-05] MEDS ORDERED: POTASSIUM CHL 40 MEQ/NS 0.45% 500 ML IV PRN (23:48)
[2018-10-05] MEDS ORDERED: KLOR-CON PO PRN (23:48)
[2018-10-06] MEDS ORDERED: NS 1/2 1000 ML IV 1,000 ML ONE (05:32)
[2018-10-06 05:36] LABS: BASOPHILS % (AUTO) 0.3 % (0.2-1.0); HEMATOCRIT 36.8 % (36.0-47.0); HEMOGLOBIN 12.5 g/dL (12.0-16.0); LYMPHOCYTES # (AUTO) 0.8 X10^3/uL (1.3-2.9); LYMPHOCYTES % (AUTO) 7.5 % (21.0-51.0); MEAN CORPUSCULAR HEMOGLOBIN 30.6 pg (27.0-34.0); MEAN CORPUSCULAR HGB CONC 33.9 g/dL (33.0-35.0); MEAN CORPUSCULAR VOLUME 90.4 fL (80.0-100.0); MEAN PLATELET VOLUME 10.3 fL (7.4-11.0); MONOCYTES # (AUTO) 0.3 x10^3/uL (0.3-0.8); MONOCYTES % (AUTO) 2.7 % (0.0-13.0); NEUTROPHILS # (AUTO) 9.7 x10^3/uL (2.2-4.8); NEUTROPHILS % (AUTO) 89.5 % (42.0-75.0); PLATELET COUNT 186 X10^3/uL (150.0-450.0); RED BLOOD COUNT 4.08 X10^6/uL (3.5-5.4); WHITE BLOOD COUNT 10.8 X10^3/uL (3.6-10.0)
[2018-10-06] MEDS: FORTAZ or TAZICEF VIAL INJ IVP SCH (05:38)
[2018-10-06] MEDS: NS 1/2 1000 ML IV 1,000 ML IV SCH (05:38)
[2018-10-06] MEDS: SOLU-Medrol 40 MG VIAL IVP SCH (05:55)
[2018-10-06 05:57] LABS: ALANINE AMINOTRANSFERASE 154 Units/L (12-78); ALKALINE PHOSPHATASE 106 Units/L (46-116); ASPARTATE AMINO TRANSFERASE 96 Units/L (15-37); BLOOD UREA NITROGEN 11 mg/dL (7-18); CALCIUM 9.1 mg/dL (8.5-10.1); CARBON DIOXIDE 26.2 mmol/L (21-32); CHLORIDE 104 mmol/L (98-107); COR CA(FOR HYPOALB) 9.9 mg/dL (8.5-10.1); COR NA(FOR HYPERGLY) 140 mmol/L (136-145); CREATININE 0.94 mg/dL (0.55-1.02); MAGNESIUM 2.5 mg/dL (1.7-2.9); SODIUM 139 mmol/L (136-145); TOTAL PROTEIN 7.2 g/dL (6.4-8.2); eGFR NON BLACK RACES > 60 (>60)
[2018-10-06 06:18] LABS: CKMB % 2.5 % (<4); CREATINE KINASE MB 2.7 ng/mL (0-4.0); TROPONIN I 0.02 ng/mL (0-1.5)
--- NOTE | 2018-10-06 06:26 | RAD ---
HISTORY: Shortness of breath Study: Chest AP portable Comparison: 10/05/2018 Findings: The heart is mildly enlarged. No congestive heart failure is noted. The lungs are mildly hypo inflated but free of acute alveolar infiltrates. No definite pleural effusions are identified. The bony thorax is unremarkable. IMPRESSION: Mild cardiomegaly without congestive heart failure Lungs mildly hypo inflated but free of acute infiltrates Reported By:
[2018-10-06] MEDS: DUONEB 0.5 MG/3 MG NEB SCH ×2 (08:59→12:24)
[2018-10-06] MEDS: ROBITUSSIN DM PO SCH (09:08)
[2018-10-06] MEDS: ZANAFLEX PO SCH (09:09)
[2018-10-06] MEDS: NEURONTIN CAP 100 MG PO SCH (09:09)
[2018-10-06] MEDS: LEVAQUIN TAB 750 MG PO SCH (09:10)
[2018-10-06] MEDS: COZAAR PO SCH (09:11)
[2018-10-06] MEDS: HYDROCHLOROTHIAZIDE 25 MG TAB PO SCH (09:12)
[2018-10-06] MEDS: LISDEXAMFETAMINE 70 MG PO SCH (09:12)
[2018-10-06] MEDS: PILOCARPINE HCL 5 MG PO SCH (09:12)
[2018-10-06] MEDS: MINOCIN PO SCH (09:13)
[2018-10-06 14:00] VITALS: BP 98/62
== END 2018-10-06 12:40 | disposition home or self-care (01) | DRG 195 ==
LOC: ER 21:11 → MED/SURG 21:11 → OBSVTOIN 10-05 03:44 → MED/SURG 10-05 04:15
PROVIDERS: ADMIT Obstetrics & Gynecology Obstetrics; ATTEND Internal Medicine
DX: R51 Headache; M79.7 Fibromyalgia; R06.02 Shortness of breath; J18.0 Bronchopneumonia, unspecified organism; J20.8 Acute bronchitis due to other specified organisms; K21.9 Gastro-esophageal reflux disease without esophagitis; R07.89 Other chest pain; R73.09 Other abnormal glucose; M54.2 Cervicalgia; R42 Dizziness and giddiness; I10 Essential (primary) hypertension
CPT/HCPCS: 36415; 71010; 71020; 71045; 71046; 71275; 80053; 82550; 82553; 83735; 83880; 84484; 85025; 85378; 85610; 85730; 87040; 87070; 87205; 87502; 93005; 94640; 94760; 96365; 96374; 96375; 99284; A4222; J0713; J2270; J2405; J2920; J3490; J7050; J7620; J8499